=== PATIENT | male | born 1930 | race Caucasian/White ===

== ENCOUNTER 2017-01-15 06:26 | Inpatient (IN) ==
[2017-01-15] MEDS ORDERED: DUONEB (A & A) INH ONE (07:03)
[2017-01-15] MEDS ORDERED: SOLU-MEDROL IV ONE (07:03)
--- NOTE | 2017-01-15 07:13 | PROVIDER DOCUMENTATION ---
HPI-Respiratory General - General Chief Complaint: Shortness of Breath Stated Complaint: bronchitis sx worsening/feet swelling Time Seen by Provider: 01/15/17 06:33 Source: patient, family Allergies/Adverse Reactions: Patient Allergies Allergy/AdvReac Type Severity Reaction Status Date / Time clopidogrel bisulfate * Allergy Severe HIVES Verified 01/15/17 07:22 [From Plavix] meperidine HCl * Allergy Severe NAUSEA/VOMI Verified 01/15/17 07:22 [From Demerol] TING morphine AdvReac Severe NAUSEA/VOMI Verified 01/15/17 07:22 TING Home Medications: Home Medication List Medication Instructions Recorded Confirmed Last Taken Type Isosorbide Mononitrate E.r. [Imdur] 60 mg PO DAILY 12/06/13 01/15/17 01/14/17 History SIMVAstatin [Zocor] 20 mg PO QHS 12/06/13 01/15/17 01/14/17 History Potassium Chloride E.r. [K-Dur] 20 meq PO DIRECTED #0 tablet 01/06/1401/14/17 Rx Furosemide [Lasix] 40 mg PO DIRECTED 09/22/14 01/15/17 01/14/17 History Metoprolol [Lopressor] 0.5 tab PO BID 09/22/14 01/15/17 01/14/17 History Amiodarone HCl 200 mg PO DAILY 02/02/16 01/15/17 01/14/17 History Aspirin [Aspirin EC] 81 mg PO DAILY 02/02/16 01/15/17 01/14/17 History Nitroglycerin [Nitroglycerin 1 spray SL Q5M PRN PRN 02/02/16 01/15/17 Unknown History Lingual [place]] Psyllium Husk [Metamucil] 2 each PO DAILY 02/02/16 01/15/17 01/14/17 History Apixaban [Eliquis] 2.5 mg PO BID 01/15/17 01/15/17 01/14/17 History Digoxin [Digoxin] 125 mcg PO DIRECTED 01/15/17 01/15/17 01/14/17 History Levothyroxine Sodium 50 mcg PO DAILY 01/15/17 01/15/17 01/14/17 History Ranolazine E.r. [Ranexa] 500 mg PO BID 01/15/17 01/15/17 01/14/17 History - History of Present Illness-Resp Nature of Presenting Problem: Reports cough/fever started 2 days ago. Saw PCP and was prescribed Z-pack, Tessalon, and Medrol dose pack. No improvement. Reports SOB and b/l leg swelling this AM and still running a fever. Reports pacer and a stent in the past. Been f/u with Dr. Johnson, Feed [facility] Q 2-3 month for pacer checking etc. Had a normal stress test < 1 year ago. Denies DMII/COPD. Reports chest tightness when seen at ER. Quality of Pain: reports: aching Severity in ED: reports: moderate Onset/Duration: reports: 2 days ago Timing: reports: still present, getting worse Context: denies: recent foreign travel Cough Quality/Degree: reports: productive cough Current Respiratory Medication Therapy: Initiated none, Initiated see nurses note Modifying Factors: improves with: rest Associated Symptoms: reports: cough, fever/chills, flu-like symptoms, nasal congestion, shortness of breath, wheezing Similar Symptoms Previously?: Yes Recently seen or treated by another doctor?: Yes Review of Systems - Adult - REVIEW OF SYSTEMS - ADULT Constitutional: reports: see HPI, chills, fever, fatique Eyes: reports: no symptoms reported Ears, Nose, Mouth & Throat: reports: no symptoms reported Cardiovascular: reports: see HPI, chest pain Respiratory: reports: see HPI, cough, shortness of breath, wheezing Gastrointestinal: reports: no symptoms reported Genitourinary: reports: no symptoms reported Musculoskeletal: reports: no symptoms reported Integumentary: reports: no symptoms reported Neurological: reports: no symptoms reported Psychiatric: reports: no symptoms reported Allergic/Immunologic: reports: no symptoms reported All Other Systems: Reviewed and Negative Past History - Adult - PAST MEDICAL HISTORY-ADULT Review of Records: reports: Nursing Assessment Review, Medications Reviewed, Social history reviewed & non-contributory. Major Childhood Illnesses: reports: denies history Cardiovascular: reports: cardiac disease, HTN, hyperlipidemia Other Conditions: reports: other cancer (right neck lymph nodes) - PRIOR SURGERIES/PROCEDURES Surgical/Procedure History: reports: cholecystectomy, orthopedic (extremity) ( knee replacement), back/neck (back and neck Sx), other (triple bypass;carpel tunnel) - IMMUNIZATION STATUS Childhood Immunizations: See Nurse Assessment Flu Vaccine: UTD - FAMILY HISTORY Family History: reviewed, not pertinent Physical Exam-General - PHYSICAL EXAM-ADULT Initial Vital Signs Reviewed: Yes - CONSTITUTIONAL General Appearance: alert, no apparent distress - EYES Eyes: PERRL/EOMI, pink conjunctivae - HEAD, EARS, NOSE, MOUTH & THROAT HENMT: normocephalic/atraumatic, moist mucous membranes, normal ENT inspection - NECK Neck: non-tender, full range of motion, supple - RESPIRATORY Respiratory: chest non-tender, no pleuratic chest pain, no respiratory distress , no accessory muscle use, rales, rhonchi, wheezing. negative: retractions, splinting - CARDIOVASCULAR Cardiovascular: normal peripheral pulses, regular rate, rhythm - GASTROINTESTINAL (ABDOMEN) Abdominal Exam: normal bowel sounds, non tender, soft - MUSCULOSKELETAL Back Exam: normal inspection, no CVA tenderness, no vertebral tenderness Extremity: normal range of motion, non-tender, normal gait, normal inspection, swelling (B/l LE 1+ pitting edema.). negative: no calf tenderness - SKIN Integumentary: normal color, normal turgor, warm/dry - NEUROLOGIC Neurologic: no motor/sensory deficits - PSYCHIATRIC Psych/Mental Status: normal mood/affect, normal thought content, normal thought process, oriented x 3 Progress - PLAN OF CARE/RESULTS Progress/Plan/Lab Results: Orders Category Date Time Status Admit - [facility] Routine AdmDCTranf 01/15/17 11:47 Ordered Activity - Up with Assistance ORDERED Care 01/15/17 11:47 Active Apply Mechanical Device [QM] ORDERED Care 01/15/17 11:47 Active Cardiac Monitoring DIRECTED Care 01/15/17 07:03 Active Elevate Head of Bed DIRECTED Care 01/15/17 11:47 Active Encourage Fluids DIRECTED Care 01/15/17 11:47 Active Intake and Output-Strict Q 8-HR ASSESS Care 01/15/17 11:47 Active Nursing- Assist w/ IS as order ORDERED Care 01/15/17 11:47 Active Saline Loc NOW Care 01/15/17 07:03 Active Turn, Cough and Deep Breathe Q2HR Care 01/15/17 11:47 Active Vital Signs Order Q 8-HR ASSESS Care 01/15/17 11:47 Active Regular Diet Diet 01/15/17 10:32 Active CHEST-2 VIEWS [RAD] Routine Exams 01/16/17 06:00 Completed CHEST-PORTABLE [RAD] Stat Exams 01/15/17 07:03 Completed ABG [RESP] Routine Lab 01/15/17 07:25 Completed BLOOD CULTURE [BLDCUL] Stat Lab 01/15/17 07:38 Results CBC WITH DIFF [HEME] Routine Lab 01/16/17 05:40 Completed CBC WITH ELECTRONIC DIFF [HEME] Stat Lab 01/15/17 07:38 Completed CK PROFILE [SP CHEM] Stat Lab 01/15/17 07:38 Completed COMPREHENSIVE METABOLIC PANEL [CHEM] Stat Lab 01/15/17 07:38 Completed Flu Swab [INFLUENZA SCREEN A/B] Stat Lab 01/15/17 07:38 Completed MAGNESIUM [CHEM] Stat Lab 01/15/17 07:38 Completed PRO B-NATRIURETIC PEPTIDE Stat Lab 01/15/17 07:38 Completed PROTIME WITH INR [COAG] Stat Lab 01/15/17 07:38 Completed PTT [COAG] Stat Lab 01/15/17 07:38 Completed SPUTUM CULTURE WITH GRAM STAIN [RM] Routine Lab 01/15/17 15:05 Results TROPONIN T Stat Lab 01/15/17 07:38 Completed UA NIMS W/REFLEX CULT [URINALYSIS] Stat Lab 01/15/17 07:38 Completed 0.9% Sodium Chloride Inj [Ns] 1,000 ml Med 01/15/17 11:47 Active IV KVO Albuterol 2.5MG/Ipratrop 0.5MG [Duoneb (A & A)] Med 01/15/17 07:03 Discontinued 3 ml INH NOW ONE Amiodarone [Cordarone] Med 01/16/17 09:00 Active 200 mg PO DAILY Apixaban [Eliquis] Med 01/15/17 21:00 Active 2.5 mg PO BID Aspirin EC Med 01/16/17 09:00 Active 81 mg PO DAILY CefTRIAXONE 1 GM/NS [Rocephin 1 gm/Ns] Med 01/15/17 11:47 Active 1 gm in 50 ml IV Q24H Digoxin [Lanoxin] Med 01/16/17 09:00 Active 125 microgm PO Q48H Fluticasone/Salmet 250/50 INH [Advair 250/50 Diskus] Med 01/15/17 11:47 Active 1 puff INH RTBID Furosemide [Lasix] Med 01/17/17 09:00 Active 40 mg PO MoWeFr Furosemide [Lasix] Med 01/15/17 09:29 Discontinued 60 mg IV NOW ONE Isosorbide Mononitrate E.r. [Imdur] Med 01/16/17 09:00 Active 60 mg PO DAILY Levothyroxine [Synthroid] Med 01/16/17 09:00 Active 50 microgm PO DAILY Methylprednisolone Sod Succ [Solu-Medrol] Med 01/15/17 07:03 Discontinued 125 mg IV NOW ONE Metoprolol [Lopressor] Med 01/15/17 21:00 Active 12.5 mg PO BID Nitroglycerin [Nitroglycerin Lingual [place]] Med 01/15/17 11:47 Active 0 gm SL Q5M PRN PRN Potassium Chloride E.r. [Klor-Con] Med 01/17/17 09:00 Active 20 meq PO MoWeFr Psyllium Husk [Metamucil] Med 01/16/17 09:00 Active 2 each PO DAILY Ranolazine E.r. [Ranexa] Med 01/15/17 21:00 Active 500 mg PO BID SIMVAstatin [Zocor] Med 01/15/17 21:00 Active 20 mg PO QHS Aerosol Treatments RTQ6H.[facility] 01/15/17 16:00 Completed Aerosol Treatments RTQ6H.[facility] 01/15/17 22:00 Completed Aerosol Treatments RTQ6H.[facility] 01/16/17 10:00 Completed Aerosol Treatments Routine Ot 01/15/17 07:05 Completed Aerosol Treatments Stat Ot 01/15/17 07:05 Completed Incentive Spirometer Routine Ot 01/15/17 11:47 Completed MDI Treatments Stat Ot 01/15/17 11:47 Completed Oxygen Device Routine Ot 01/15/17 11:47 Completed Pulse Oximetry Routine Ot 01/15/17 11:47 Completed Telemetry [OM.EQ] Routine Ot 01/15/17 11:47 Active EKG [EKG] Stat Ther 01/15/17 06:37 Draft EKG [EKG] Stat Ther 01/15/17 07:03 Ordered Transfer/Admit Order [TRANSFER] Routine Transfer 01/15/17 10:29 Completed Result Diagrams: 01/16/17 05:40 01/15/17 07:38 - REASSESSMENT Reassessment #1 Time Reassessed: 10:23 Status: improving (after 450 ml of urine out the patient felt much better. Reviewed cxr with radiology and they said CHF was read as pneumonia because it was labeled fever and cough. Dr Painting will assess for disposition) Departure - Departure Time of Disposition Decision: 10:00 DIAGNOSIS: SOB (shortness of breath) CHF (congestive heart failure) Qualifiers: Congestive heart failure type: unspecified congestive heart failure type Congestive heart failure chronicity: acute on chronic Qualified Code(s): I50.9 - Heart failure, unspecified Disposition: ADMITTED INPATIENT 09 Certified Medical Emergency: Emergent Condition: Stable
[2017-01-15 07:33] LABS: ALLEN TEST YES; BE 5.6 mmoll (-3.0-3.0); BLOOD TYPE ARTERIAL; DRAW SITE R RADIAL; METHB 1.4 % (0.0-1.5); O2(CT) 14.4 mL/dL (15.0-23.0); PCO2(98.6) 41 mmHg (35-45); PO2(98.6) 58 mmHg (60-100); SAMPLE BLOOD; SAO2 93.8 % (95.0-100.0); THB 11.3 g/dL (11.5-17.4); pH(98.6) 7.47 (7.35-7.45)
[2017-01-15 08:03] LABS: MANUAL DIFF NEEDED? NO; URINE CULTURE NEEDED? NO; URINE MICRO REVIEW NEEDED? NO; URINE SOURCE CLEAN CATCH
[2017-01-15 08:08] LABS: HEMOGLOBIN 11.8 g/dL (14.0-18.0); LYMPH# 1.27 X1000 (1.2-3.4); LYMPH% 14.4 % (20.5-51.1); MCH 28.1 PG (27-31); MCHC 31.1 g/dL (33-37); MCV 90.5 FL (81-99); MONO# 0.67 X1000 (0.11-0.59); MONO% 7.6 % (1.7-9.3); MPV 10.3 FL (7.4-10.4); PLT 176 X1000 (130-400)
[2017-01-15 08:12] LABS: BILIRUBIN URINE NEGATIVE (NEGATIVE); BLOOD URINE NEGATIVE (NEGATIVE); COLOR STRAW; GLUCOSE URINE NEGATIVE (NEGATIVE); LEUKOCYTES URINE NEGATIVE (NEGATIVE); NITRITE URINE NEGATIVE (NEGATIVE); PROTEIN URINE NEGATIVE (NEGATIVE); SP GRAVITY URINE 1.007; TURBIDITY URINE CLEAR (CLEAR); UROBILINOGEN URINE NORMAL (NORMAL)
[2017-01-15 08:14] LABS: UR EPITHELIAL CELLS <10 /HPF (<10); URINE BACTERIA NEGATIVE /HPF; URINE RBC <10 /HPF (<10); URINE WBC <10 /HPF (<10)
[2017-01-15 08:16] LABS: INR 1.2; PROTIME 12.8 Seconds (9.2-11.7); PTT 31.8 Seconds (22.0-36.0)
[2017-01-15 08:29] LABS: AGAP 14; ALBUMIN 3.8 g/dL (3.5-5.0); ALKALINE PHOSPHATASE 56 U/L (32-122); BUN 27 mg/dL (8-22); CHLORIDE 101 mmol/L (98-107); CK PROFILE 47 U/L (24-204); COSMO 286; GOT 28 U/L (10-34); GPT 19 U/L (10-44); MAGNESIUM 2.2 mg/dL (1.5-2.7); POTASSIUM 4.2 mmol/L (3.5-5.1); SODIUM 141 mmol/L (136-145); TCO2 26 mmol/L (25-35); TOTAL BILIRUBIN 0.82 mg/dL (0.20-1.00); TOTAL PROTEIN 7.5 g/dL (6.3-8.3)
--- NOTE | 2017-01-15 09:01 | Diag Imaging Result Document ---
PROCEDURE NAME: CHEST-PORTABLE - 01/15/2017 PORTABLE CHEST X-RAY: COMPARISON: 12/10/2016. FINDINGS: Stable dual-chamber pacemaker and CABG changes. Stable moderate cardiomegaly. There is significant mixed primarily alveolar infiltrate throughout the right lung diffusely. There is lesser infiltrate in the left lung base. No pneumothorax or large effusion. IMPRESSION: Bilateral pulmonary infiltrates, right greater than left. Pneumonia is suggested, although a component of pulmonary edema cannot be excluded.
[2017-01-15] MEDS ORDERED: LASIX IV ONE (09:29)
[2017-01-15] MEDS ORDERED: NITROGLYCERIN LINGUAL SPRAY SL PRN (11:47)
[2017-01-15] MEDS: ROCEPHIN 1 GM/NS 1 GM/50 ML IVPB IV SCH (13:35)
--- NOTE | 2017-01-15 13:44 | HISTORY AND PHYSICAL ---
HISTORY OF PRESENT ILLNESS: This is an 86-year-old brought to the emergency room this morning. He states that since Tuesday, so going on for about 5 or 6 days, he has had increased cough, increased shortness of breath. He did, I think, see Dr. Gama Gerber who is his physician, but felt like it had worsened, and his states she had had similar symptoms but got better, brought him to the emergency room. PAST MEDICAL HISTORY: 1. Hypertension. 2. Coronary artery disease. 3. Hypercholesterolemia. 4. 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 SURGICAL HISTORY: 1. Status post cholecystectomy. 2. Status post coronary bypass grafting x3. 3. Left knee replacement. 4. Lumbar disk fusions. 5. Lymph node removal on his neck 40 years ago. He denies chest pain or pleuritic pain. He just feels short of breath and increased cough and denies fever or chills. FAMILY HISTORY: Noncontributory. SOCIAL HISTORY: Positive for alcohol, 2 beers a day. Tobacco--chews daily. Denies illicit drugs. Lives at home with his . ALLERGIES: Plavix, Demerol, and morphine which has caused hives and itching before. PRESENT MEDICATIONS: He is on: 1. Amiodarone 200 mg daily. 2. Eliquis 2.5 b.i.d. 3. Aspirin 81 mg a day. 4. Digoxin 125 mcg a day. 5. Lasix 40 mg a day. 6. Imdur 60 mg a day, 7. Levothyroxine 50 mcg a day, 8. Lopressor 0.5 mg b.i.d. 9. Potassium chloride 20 mEq a day, 10.Metamucil two a day. 11.Ranexa 500 mg b.i.d. 12.Zocor 20 mg at bedtime. STUDIES: Echocardiogram I saw on 01/04/2014 shows: 1) Mildly decreased left ventricular systolic function, ejection fraction was 50% to 55%. Questionable hypokinesis of the posterior wall. 2) A moderate degree of tricuspid regurgitation, moderate amount of pulmonary hypertension with right-sided pressures about 63 mmHg, 3) moderate enlargement of the right ventricle, 4) significant enlargement of the right atrium, 5) moderate enlargement of the left atrium, 6) a mild to moderate degree of mitral regurgitation. He has sclerosis of the aortic valve without any stenosis. He had a lower extremity venous study done on 12/21, as well. No evidence of deep or superficial venous thrombus at that time in either leg. PHYSICAL EXAMINATION TODAY: VITAL SIGNS: Afebrile, temp 97.5. Pulse 89, respirations 20, blood pressure 145/74. Height 5 feet 9 inches. HEENT: Pupils are equal and round. NECK: Does have mild distension of neck veins, CVP about 8 cm water pressure. LUNGS: Clear in all lung ashraf. No active wheezing. CARDIOVASCULAR: Regular rhythm and rate without murmur or S3. ABDOMEN: Soft. SKIN: Warm and dry. LABORATORY DATA: White blood cell count 8840, hematocrit 38, platelet count 176,000. Sodium 141, potassium 4.2, chloride 101, bicarb 26, BUN 27, creatinine 1.1, blood sugar was 89, magnesium 1.2. Troponin was less than 0.01. ProBNP 4426. Pro time is 12.8, PTT 31.8. Urinalysis unremarkable. Blood gases show pH was 7.47, pCO2 was 41, pO2 was 58, O2 sat was 93% on room air. IMAGING: Chest x-ray: Bilateral pulmonary infiltrates, right greater than left. Pneumonia suggested, although a component of pulmonary edema could not be excluded. ASSESSMENT AND PLAN: 1. History of coronary artery disease. History of mild left ventricular dysfunction. Does, I think, have a little bit of pulmonary venous hypertension but all in all, well controlled. 2. Obviously, some bronchitis and chest x-ray suggestive of infiltrates, so I am going to treat him for bronchial pneumonia, and we may give him a little bit of Lasix while he is here. He is allergic to Plavix and meperidine and morphine, but I will give him some Rocephin 1 g daily. I will give him a little bit of Lasix today, and will give him some breathing treatments including steroid inhaler and a little supplemental O2 and see if he does not feel a little better. I will also give him some Tessalon Perles for his cough. 3. History of coronary artery disease status post coronary artery bypass graft x3, mild left ventricular dysfunction suggested on echocardiogram back in December of 2013, but his ejection fraction at that time was 50% to 55%. I think he has some mild pulmonary venous hypertension but I do not think this is the main problem. 4. Hypertension. Will watch his blood pressure. Continue his current medications. Blood pressure was a little high when he came in, 174/63. It is now 145/74, which is acceptable. 5. He has had cancer of his right neck, status post surgery. 6. History of hypercholesterolemia. cc: MD Gama Diana MD
[2017-01-15] MEDS: DUONEB (A & A) INH SCH ×2 (15:28→23:00)
[2017-01-15] MEDS: ADVAIR 250/50 DISKUS INH SCH ×2 (15:28→22:59)
[2017-01-15] MEDS: RANEXA PO SCH (22:13)
[2017-01-15] MEDS: ELIQUIS PO SCH (22:13)
[2017-01-15] MEDS: LOPRESSOR PO SCH (22:13)
[2017-01-15] MEDS: ZOCOR PO SCH (22:13)
[2017-01-16] MEDS: NS 1,000 ML IV SCH ×2 (01:00→16:57)
[2017-01-16] MEDS: DUONEB (A & A) INH SCH ×4 (04:13→23:00)
[2017-01-16 06:31] LABS: BASO% 0.2 % (0.0-0.8); HEMATOCRIT 36.5 % (42.0-52.0); HEMOGLOBIN 11.2 g/dL (14.0-18.0); LYMPH# 0.28 X1000 (1.2-3.4); MANUAL DIFF NEEDED? YES; MCH 27.8 PG (27-31); MCHC 30.7 g/dL (33-37); MCV 90.6 FL (81-99); MONO# 0.33 X1000 (0.11-0.59); MONO% 5.9 % (1.7-9.3); MPV 10.3 FL (7.4-10.4); NEUT% 88.9 % (42.2-75.2); PLT 150 X1000 (130-400); RBC 4.03 XMIL (4.7-6.1)
[2017-01-16 09:36] LABS: LYMPHS 3 % (21-51); MONO 3 % (1-9)
[2017-01-16] MEDS: ADVAIR 250/50 DISKUS INH SCH ×2 (09:38→23:00)
[2017-01-16] MEDS: ELIQUIS PO SCH ×2 (11:00→20:20)
[2017-01-16] MEDS: METAMUCIL PO SCH ×2 (11:00)
[2017-01-16] MEDS: LANOXIN PO SCH (11:01)
[2017-01-16] MEDS: RANEXA PO SCH ×2 (11:01→20:20)
[2017-01-16] MEDS: SYNTHROID PO SCH (11:02)
[2017-01-16] MEDS: IMDUR PO SCH (11:02)
[2017-01-16] MEDS: LOPRESSOR PO SCH ×2 (11:02→20:20)
[2017-01-16] MEDS: ASPIRIN EC PO SCH (11:03)
[2017-01-16] MEDS: CORDARONE PO SCH (11:03)
--- NOTE | 2017-01-16 12:59 | Diag Imaging Result Document ---
PROCEDURE NAME: CHEST-2 VIEWS - 01/16/2017 CHEST X-RAY 2 VIEWS, 01/16/2017: COMPARISON: 01/15/2017. FINDINGS: There is slight improvement in the bilateral ill-defined infiltrates, asymmetric on the right side. Stable cardiomegaly. No pneumothorax or pleural effusion. IMPRESSION: Slight improvement from prior.
[2017-01-16] MEDS: ROCEPHIN 1 GM/NS 1 GM/50 ML IVPB IV SCH (13:07)
[2017-01-16] MEDS ORDERED: LASIX IV ONE ×2 (16:18→23:58)
--- NOTE | 2017-01-16 17:42 | PROGRESS NOTE ---
DATE: 01/16/2017 SUBJECTIVE: Mr. Kaye is feeling better. The breathing is better. He is a little stronger. PHYSICAL EXAMINATION: Vital Signs: Today temperature 97.5 degrees, pulse 60, respirations 14, blood pressure 122/53. HEENT: Pupils equal and round. CVP less than 6 cm. Lungs: Clear in all lung ashraf. Cardiovascular: Regular rhythm and rate without murmur or S3. Abdomen: Soft. Skin: Warm and dry. URINE OUTPUT: Was like 1500 mL. LABORATORIES: From this morning white count 5580, hematocrit 36, platelet count 150,000. Stable. Electrolytes from yesterday looked good. Creatinine 1.1. Chest x-ray from this morning slight improvement from prior on 01/15/2017. There is slight improvement bilaterally with ill-defined infiltrates, asymmetric on the right side. Clinically he feels much better. ASSESSMENT AND PLAN: 1. History of coronary artery disease. History of mild left ventricular dysfunction. Does have some pulmonary venous hypertension. Appears to be doing better from post diuresis, swelling is down in his ankles as well. Breathing better. 2. Obviously he has some bronchitis but chest x-ray also suggestive of some infiltrates so continue to treat for pneumonia. He is on Rocephin 1 g daily. I probably will give him some more Lasix today as well. 3. History of coronary artery disease. He is status post 3 grafts. Mild left ventricular function suggestive by echocardiogram back in December,. Ejection fraction 50-55%. He has some mild pulmonary arterial hypertension. 4. Hypertension. 5. History of cancer in his neck, status post surgery. 6. History of hypercholesterolemia. He does appear improved. Breathing doing better. Still coughing. I will give him another dose of Lasix. Continue his Rocephin. I do not see any other changes at this point. cc: MD Gama Diana MD
[2017-01-16] MEDS: ZOCOR PO SCH (20:20)
[2017-01-17] MEDS ORDERED: SOLU-MEDROL IV ONE (00:12)
[2017-01-17] MEDS: DUONEB (A & A) INH SCH (03:03)
[2017-01-17 05:05] LABS: ALLEN TEST YES; BLOOD TYPE ARTERIAL; DRAW SITE R RADIAL; METHB 1.4 % (0.0-1.5); O2(CT) 14.4 mL/dL (15.0-23.0); PCO2(98.6) 45 mmHg (35-45); PO2(98.6) 71 mmHg (60-100); SAMPLE BLOOD; SAO2 96.7 % (95.0-100.0); THB 10.9 g/dL (11.5-17.4); pH(98.6) 7.48 (7.35-7.45)
[2017-01-17 06:32] LABS: MODALITY CANNULA
--- NOTE | 2017-01-17 06:57 | EKG Report ---
Test Performed on : 01/17/2017 06:35:59 AM Test Reason : SOB Blood Pressure : / mmHG Vent. Rate : 065 BPM Atrial Rate : 065 BPM P-R Int : 186 ms QRS Dur : 168 ms QT Int : 504 ms P-R-T Axes : 073 -89 105 degrees QTc Int : 524 ms AV dual-paced rhythm Abnormal ECG When compared with ECG of 15-JAN-2017 06:36, (Unconfirmed) No significant change was found Confirmed by Zabrina OLIVA, Gama Garcia ([id number]) on 01/17/2017 8:01:28 PM
--- NOTE | 2017-01-17 07:09 | EKG Report ---
Test Performed on : 01/15/2017 06:36:56 AM Test Reason : cp Blood Pressure : / mmHG Vent. Rate : 064 BPM Atrial Rate : 064 BPM P-R Int : 000 ms QRS Dur : 204 ms QT Int : 500 ms P-R-T Axes : 000 -88 090 degrees QTc Int : 515 ms AV dual-paced rhythm Abnormal ECG When compared with ECG of 02-FEB-2016 12:23, No significant change was found Unconfirmed Result
--- NOTE | 2017-01-17 07:36 | Diag Imaging Result Document ---
PROCEDURE NAME: CHEST-PORTABLE - 01/17/2017 AP PORTABLE CHEST AT 0500 HOURS: FINDINGS: There is alveolar opacity in the perihilar regions and throughout the right lung. This may be due to pulmonary edema, although the possibility of pneumonia cannot be excluded. Considering differences in technique, this has not changed since 01/17/2017 at 0110 hours. There has been worsening in the right upper lobe since the previous study of 01/16/2017, however. IMPRESSION: Pulmonary edema and/or pneumonia.
--- NOTE | 2017-01-17 08:14 | Diag Imaging Result Document ---
PROCEDURE NAME: CHEST-PORTABLE - 01/17/2017 AP PORTABLE CHEST AT 0110 HOURS: FINDINGS: There is cardiomegaly. There are sternotomy wires and anterior mediastinal surgical clips. There is a pacemaker on the left. There is alveolar opacity in the left perihilar region and throughout the right lung, particularly in the perihilar region and base. This has worsened, particularly with respect to the right upper lobe since 01/16/2017. There has been no appreciable change since 01/15/2017. IMPRESSION: Pulmonary edema and/or pneumonia.
[2017-01-17] MEDS ORDERED: ALBUTEROL NEB INH PRN (08:35)
[2017-01-17] MEDS ORDERED: LASIX PO SCH (09:00)
[2017-01-17] MEDS: ALBUTEROL NEB INH PRN ×3 (09:22→19:45)
[2017-01-17] MEDS: ADVAIR 250/50 DISKUS INH SCH ×2 (09:22→19:45)
[2017-01-17] MEDS: ELIQUIS PO SCH ×2 (09:38→21:36)
[2017-01-17] MEDS: IMDUR PO SCH (09:38)
[2017-01-17] MEDS: KLOR-CON PO SCH (09:38)
[2017-01-17] MEDS: RANEXA PO SCH ×2 (09:38→21:36)
[2017-01-17] MEDS: LOPRESSOR PO SCH ×2 (09:38→21:37)
[2017-01-17] MEDS: LASIX IV SCH (09:38)
[2017-01-17] MEDS: ASPIRIN EC PO SCH (09:38)
[2017-01-17] MEDS: CORDARONE PO SCH (09:39)
[2017-01-17] MEDS: DOXYCYCLINE PO SCH ×2 (09:39→21:37)
[2017-01-17] MEDS: SYNTHROID PO SCH (09:39)
[2017-01-17] MEDS: METAMUCIL PO SCH ×2 (09:39)
[2017-01-17] MEDS: SOLU-MEDROL IV SCH ×2 (12:45→23:42)
[2017-01-17] MEDS: ROCEPHIN 1 GM/NS 1 GM/50 ML IVPB IV SCH (12:45)
--- NOTE | 2017-01-17 21:25 | ECHO REPORT ---
ORDER DATE: 01/17/2017 MEASUREMENTS: Left ventricular end-diastolic diameter 5.2, end-systolic diameter 4.2, posterior wall thickness 1.0, septal thickness 1.5, left atrium 5.6, aortic root 3.3. SUMMARY: 1. Fair quality study. 2. Mild aortic valve sclerosis involving trileaflet aortic valve with adequate aortic valve opening evident. Peak instantaneous gross aortic valve is 16 mmHg. Mitral and tricuspid valves are without structural abnormality. Pulmonic valve without structural abnormality. There is mild to moderate mitral regurgitation and moderate to severe tricuspid regurgitation. Estimated systolic PA pressure by Doppler is 100 mmHg suggesting severe pulmonary hypertension. Aortic root is normal size. 3. Normal left ventricular dimensions suggested on 2-dimensional images. Estimated left ejection fraction approximately 50%. The left atrium is moderately enlarged. The right atrium is moderately enlarged. The right ventricle is mildly enlarged with grossly preserved right ventricular systolic performance. Pacemaker lead is evident in the right atrium and right ventricle. 4. No pericardial effusion. 5. Appearance of inferior vena cava suggests elevated central venous pressure. CONCLUSIONS: 1. Mild aortic valve sclerosis without stenosis. 2. Mild to moderate mitral regurgitation. 3. Moderate to severe tricuspid regurgitation with severe pulmonary hypertension by Doppler. 4. Estimated left ejection fraction 50%. 5. Moderate biatrial enlargement. 6. Mild right ventricular enlargement. 7. Elevated central venous pressure is suggested. cc: MD Gama Longo MD
[2017-01-17] MEDS: ZOCOR PO SCH (21:37)
[2017-01-18] MEDS: ALBUTEROL NEB INH PRN ×5 (02:41→19:19)
[2017-01-18] MEDS: ADVAIR 250/50 DISKUS INH SCH (07:32)
[2017-01-18] MEDS: IMDUR PO SCH (09:15)
[2017-01-18] MEDS: ELIQUIS PO SCH ×2 (09:15→21:28)
[2017-01-18] MEDS: SYNTHROID PO SCH (09:16)
[2017-01-18] MEDS: ASPIRIN EC PO SCH (09:16)
[2017-01-18] MEDS: LOPRESSOR PO SCH ×2 (09:17→21:26)
[2017-01-18] MEDS: DOXYCYCLINE PO SCH ×2 (09:18→21:28)
[2017-01-18] MEDS: CORDARONE PO SCH (09:18)
[2017-01-18] MEDS: RANEXA PO SCH ×2 (09:19→21:27)
[2017-01-18] MEDS: METAMUCIL PO SCH ×2 (09:19)
[2017-01-18] MEDS: LANOXIN PO SCH (09:19)
[2017-01-18] MEDS: LASIX IV SCH (09:19)
[2017-01-18] MEDS: SOLU-MEDROL IV SCH ×2 (12:02→23:58)
--- NOTE | 2017-01-18 20:51 | CONSULTATION ---
DATE OF CONSULTATION: 01/18/2017 CONSULTATION REQUESTED BY: Dr. Gerber. REASON FOR CONSULTATION: Shortness of breath, pulmonary hypertension. HISTORY OF PRESENT ILLNESS: Mr. Kaye is an 86-year-old male, patient of Dr. Elisha Johnson, from the [facility]. He presented to the emergency room on January 15 with a 3 to 5 day history of increasing cough, shortness of breath, wheezing, and edema of the lower extremities. The patient apparently started having these symptoms around Tuesday, a week ago , that would have been January 11, and then it continued to progress in spite of outpatient antibiotic treatment. At the time of initial presentation to the emergency room, they did a chest x-ray on him that showed bilateral pulmonary infiltrates, right greater than left, pneumonia suggested, although a component of pulmonary edema cannot be excluded. They did an electrocardiogram that showed activity of a dual chamber pacemaker. The rate was 64. They did a number of blood tests including blood gases. His pO2 was 58, his pCO2 was 41, pH 7.47. BUN 27, creatinine 1.1. His initial pro BNP level was 4426. Troponin was negative. CPK was normal. Urinalysis was negative. His white count was 8840. He was initially given treatment with IV Rocephin, methylprednisolone, and Lasix. He has also been placed on doxycycline. Since admission, the patient has noted some improvement. He is not wheezing. His legs are not as swollen. He feels better and his , who is at the bedside, states that he appears to be better. He is not having any chest pain, nausea, vomiting, fever, syncope or chills. PAST MEDICAL HISTORY: Positive for severe coronary heart disease. He has a history of paroxysmal atrial fibrillation. He has had carotid artery stenosis. He has congestive heart failure. He has mitral regurgitation, hypertension, hyperlipidemia, degenerative joint disease. PAST SURGICAL HISTORY: He had open heart x3 in 1996, mammary artery to LAD, vein graft to marginal, vein graft to PDA. Subsequently 2 of those vein grafts have become occluded. He only has a patent mammary artery to LAD as noted on a cardiac cath done about a year ago, 2015. He has had a pacemaker implanted in the past. He was noted to be in atrial fibrillation. He has had cardioversion about 2 months ago. He had cholecystectomy and back surgery. He has had extensive surgery done to the right side of his neck to remove malignant lymph nodes and subsequently this was followed by a number of reconstructive surgeries. He has as a consequence of that drooping of the right eye lid, right side of his face. He has a notable deformity of the right side of his face because of the sequela of previous extensive surgery. He has had previous knee surgery, skin cancer. SOCIAL HISTORY: He has been for a long time. He has children. Retired. Lives at home. Not a smoker. FAMILY HISTORY: Brother had coronary heart disease. HOME MEDICATIONS: His home medications at the time of the present admission included: 1. Zocor 20 daily. 2. Ranexa 500 twice a day. 3. Potassium chloride 20 mEq as directed. 4. Metoprolol 0.5 twice a day. 5. Levothyroxine 50 mcg daily. 6. Isosorbide mononitrate 60 mg daily. 7. Furosemide 40 mg as directed. 8. Digoxin 125 mcg as directed. 9. Aspirin 81 mg daily. 10.Apixaban 2.5 twice a day. 11.Amiodarone 200 mg daily. REVIEW OF SYSTEMS: His review of systems is really noncontributory beyond what I have said. His functional capacity is markedly impaired. He does very little physically. ALLERGIES: Plavix, meperidine, and morphine. PHYSICAL EXAMINATION: Vital signs: Blood pressure 152/62, pulse 65, temperature 98.2, respirations 20, weight 187 pounds. General: He is elderly, awake, alert. HEENT: He is normocephalic, however, he has extensive deformity on the right side of his face with drooping on the eye and the right side of the mouth. 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 Probably that is the sequela of extensive surgery performed to the right side of his face. 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 No cervical bruits appear to be present. Chest : Shows diminished breath sounds bilaterally with scattered bilateral crepitus and rhonchi. Cardiac: Heart sounds are regular and rhythmic. There is a questionable systolic murmur , distant. No gallop is noted. Abdomen: Nontender, soft. No masses. No hepatomegaly. Extremities: Showed diminished pulses distally with trace edema. Neurologic: He moves four extremities, follows commands. LABORATORY DATA: BUN 27, creatinine 1.1, sodium 141, potassium 4.2. White count today 5580, hemoglobin 11.2, hematocrit 36.5, platelet count 150,000. Follow-up chest x-ray was done on January 17. That x-ray shows pulmonary edema or pneumonia. The echo Doppler done on January 17 showed mild aortic valve sclerosis without stenosis, moderate-to- severe tricuspid regurgitation with severe pulmonary hypertension,PA systolic pressure of 100 mmHg. LV Ejection fraction 50%. IMPRESSION: 1. Patient presenting with increasing dyspnea, probably the result of a combination of upper respiratory infection plus decompensation of chronic congestive heart failure , both systolic and diastolic. 2. Severe coronary heart disease, previous bypass, patent mammary artery to LAD. 3. History of previous extensive surgery for management of lymphoma or related condition to the right side of the neck with sequela. 4. History of sick sinus syndrome status post pacemaker implantation. 5. Paroxysmal atrial fibrillation. RECOMMENDATIONS: At this point in time, I would suggest gentle diuresis. We might want to rearrange his medications. Probably a combination of isosorbide dinitrate plus hydralazine may be more effective than Imdur in his particular case. Also, we could try some low- dose amlodipine and see if that makes any difference. As far as beta-blockers in his case, given the fact that he is pacemaker dependent, we might want to minimize the use of beta-aileen for the time being until he is out of congestive heart failure. We will be happy to follow him during this admission and upon discharge. The family requests an appointment with Dr. Elisha Johnson, who is his usual freight router. cc: MD Gama Cruz MD [facility]ITAL[facility]ing
[2017-01-18] MEDS: APRESOLINE PO SCH (21:26)
[2017-01-18] MEDS: ZOCOR PO SCH (21:26)
[2017-01-18] MEDS: AMBIEN PO PRN (21:27)
[2017-01-18] MEDS: ISORDIL PO SCH (21:28)
[2017-01-19] MEDS: SYNTHROID PO SCH (08:50)
[2017-01-19] MEDS: LASIX IV SCH (08:50)
[2017-01-19] MEDS: ELIQUIS PO SCH ×2 (08:51→21:32)
[2017-01-19] MEDS: CORDARONE PO SCH (08:51)
[2017-01-19] MEDS: APRESOLINE PO SCH ×3 (08:51→21:32)
[2017-01-19] MEDS: RANEXA PO SCH ×2 (08:51→21:32)
[2017-01-19] MEDS: ASPIRIN EC PO SCH (08:51)
[2017-01-19] MEDS: DOXYCYCLINE PO SCH ×2 (08:51→21:33)
[2017-01-19] MEDS: METAMUCIL PO SCH ×2 (08:51)
[2017-01-19] MEDS: ISORDIL PO SCH ×3 (08:52→21:33)
[2017-01-19] MEDS: KLOR-CON PO SCH (08:52)
[2017-01-19] MEDS: ALBUTEROL NEB INH PRN ×3 (12:01→19:44)
[2017-01-19 12:55] LABS: AGAP 11; BUN 36 mg/dL (8-22); CALCIUM 8.7 mg/dL (8.8-10.2); CHLORIDE 92 mmol/L (98-107); COSMO 286; POTASSIUM 3.8 mmol/L (3.5-5.1); SODIUM 137 mmol/L (136-145); TCO2 34 mmol/L (25-35)
[2017-01-19] MEDS: ZOCOR PO SCH (21:32)
[2017-01-19] MEDS: AMBIEN PO PRN (21:32)
[2017-01-20 06:13] LABS: AGAP 12; BUN 36 mg/dL (8-22); CALCIUM 8.5 mg/dL (8.8-10.2); CHLORIDE 97 mmol/L (98-107); COSMO 294; POTASSIUM 3.9 mmol/L (3.5-5.1); SODIUM 143 mmol/L (136-145); TCO2 34 mmol/L (25-35)
--- NOTE | 2017-01-20 08:36 | PROGRESS NOTE ---
DATE: 01/20/2017 CHIEF COMPLAINT: Shortness of breath. SUBJECTIVE: Mr. Kaye is feeling slightly better, no chest pain, no swelling. OBJECTIVE: Vital signs: Blood pressure 134/61, temperature 98.5, pulse 66, respirations 16. General: He is awake and alert. HEENT/Neck: Jugular veins are slightly prominent. Chest: some end-expiratory wheezing bilaterally. Diminished breath sounds. Cardiac: Heart sounds are regular and rhythmic. No gallop or murmur. Abdomen: Nontender, no masses, no hepatomegaly. Extremities: No edema. Neurological: Moves four extremities. BLOOD WORK: Sodium is 143, potassium 3.9, BUN 36, creatinine 1.0. ProBNP has dropped to 2979. C-reactive protein was elevated at 45.38. IMPRESSION: 1. Patient presenting with decompensation of chronic congestive heart failure which is systolic and diastolic. 2. Patient has severe underlying coronary heart disease, previous bypass surgery. 3. Patient who has probably an acute respiratory process. C-reactive protein is elevated supporting that possibility. 4. History of paroxysmal atrial fibrillation and sick sinus syndrome. RECOMMENDATION: At this point in time, because of his severe pulmonary hypertension, I would try to continue to uptitrate his vasodilators. I am going to go up on the isosorbide dinitrate to 40 mg three times a day, see how he does over the next 24-48 hours. Subsequently, we could go up on the hydralazine to 50 three times a day, always giving them together for a good vasodilatory effect. I would add spironolactone at low doses, 12.5 mg daily, and see how he does. I will be happy to follow him in the hospital. Upon discharge, the patient is already established with Dr. Johnson, so, he will follow with him. cc: MD Gama Cruz MD MTDD
[2017-01-20] MEDS ORDERED: ISORDIL PO SCH (09:00)
[2017-01-20] MEDS: APRESOLINE PO SCH ×3 (09:36→21:36)
[2017-01-20] MEDS: ISORDIL PO SCH ×3 (09:36→21:35)
[2017-01-20] MEDS: ELIQUIS PO SCH ×2 (09:37→21:36)
[2017-01-20] MEDS: CORDARONE PO SCH (09:37)
[2017-01-20] MEDS: ASPIRIN EC PO SCH (09:38)
[2017-01-20] MEDS: LASIX PO SCH (09:39)
[2017-01-20] MEDS: RANEXA PO SCH ×2 (09:39→21:36)
[2017-01-20] MEDS: METAMUCIL PO SCH ×2 (09:39)
[2017-01-20] MEDS: LANOXIN PO SCH (09:40)
[2017-01-20] MEDS: SYNTHROID PO SCH (09:42)
[2017-01-20] MEDS: ALDACTONE PO SCH (09:48)
[2017-01-20] MEDS: PREDNISONE PO SCH (11:25)
[2017-01-20] MEDS: ZOCOR PO SCH (21:35)
[2017-01-20] MEDS: VENTOLIN HFA INH SCH (23:11)
[2017-01-21] MEDS: VENTOLIN HFA INH SCH ×2 (03:20→08:00)
--- NOTE | 2017-01-21 08:01 | Diag Imaging Result Document ---
PROCEDURE NAME: CHEST-2 VIEWS - 01/21/2017 AP AND LATERAL CHEST: FINDINGS: There is a pacemaker on the left. There are sternotomy wires and anterior mediastinal surgical clips. There are coarse interstitial opacities bilaterally. This has improved since 01/17/2017, however some of the improvement is probably due to better inspiration. IMPRESSION: Improved pulmonary edema.
[2017-01-21] MEDS: METAMUCIL PO SCH ×2 (08:26)
[2017-01-21] MEDS: RANEXA PO SCH (08:26)
[2017-01-21] MEDS: PREDNISONE PO SCH (08:26)
[2017-01-21] MEDS: LASIX PO SCH (08:27)
[2017-01-21] MEDS: ASPIRIN EC PO SCH (08:27)
[2017-01-21] MEDS: ISORDIL PO SCH (08:28)
[2017-01-21] MEDS: CORDARONE PO SCH (08:28)
[2017-01-21] MEDS: APRESOLINE PO SCH (08:28)
[2017-01-21] MEDS: ELIQUIS PO SCH (08:29)
[2017-01-21] MEDS: ALDACTONE PO SCH (08:29)
[2017-01-21] MEDS: KLOR-CON PO SCH (08:31)
[2017-01-21] MEDS: SYNTHROID PO SCH (08:33)
[2017-01-21 08:37] VITALS: BP 140/52
--- NOTE | 2017-01-21 09:05 | DISCHARGE SUMMARY ---
ADMISSION DATE: 01/15/2017 DISCHARGE DATE: 01/21/2017 FINAL DIAGNOSES: 1. Acute pulmonary edema secondary to chronic systolic and diastolic congestive heart failure. 2. Severe pulmonary hypertension. 3. Viral URI with acute bronchospasm. 4. Essential hypertension. 5. History of coronary artery disease. 6. Hypothyroidism, replaced. HISTORY OF PRESENT ILLNESS: The patient is an 86-year-old gentleman who presented to the emergency room on the morning of admission with a 5-6 day history of progressive cough and shortness of breath. His had come down with a viral URI several days before he became sick. He denied fever, chills or sputum production. PHYSICAL EXAMINATION: Fairly unremarkable vital signs with moderate distention of his neck veins but relatively clear lung ashraf. No active wheezing. Chest x-ray showed bilateral pulmonary infiltrates severe on the right than the left side. Radiologist felt pneumonia or pulmonary edema were both possibilities. ProBNP was 4426. ABG: PH 7.47, pCO2 41, and PO2 58 on room air. HOSPITAL COURSE: He was admitted to the medical floor and treated with intravenous Lasix and intravenous antibiotics to cover both possibilities. He initially seemed to improve somewhat but during the night on 01/16/2017 he became suddenly more short of breath. Repeat chest x-ray showed worsening of the pulmonary edema and at this time he did respond to intravenous Lasix. An echocardiogram performed the following day, showed left ventricular ejection fraction 50% and also revealed fairly significant pulmonary hypertension with estimated PA systolic of 100 mmHg. He was also noted to have increased wheezing and his steroids were bumped up, treatments instituted. He had slow but gradual improvement in his wheezing and yesterday was changed to oral prednisone and metered-dose inhaler. He has maintained his improvement and is eager to return home. His primary disaster recovery manager is Dr. Johnson in [place]. Dr. Landry saw him here and helped me to manage his pulmonary hypertension and congestive heart failure. He changed his Imdur to a combination of hydralazine and isosorbide dinitrate. He recommended tapering and discontinuing the beta aileen and beginning some low-dose spironolactone. He already has an appointment to see his disaster recovery manager next Tuesday and I will copy some chart records for his to take with him to the appointment to facilitate communication. At the time of discharge, he has minimal if any shortness of breath. He is walking fairly briskly in the halls without difficulty. He still has periods of intermittent hypoxemia and due to his pulmonary hypertension I feel some home oxygen at least at night is clearly indicated and have a social media intern arrange this. Hopefully in the future, we can get a nocturnal oxygen saturation study at home while on room air and see if he needs to continue this. He is to return to my office in 2-3 weeks for followup. DISCHARGE MEDICATIONS: Albuterol meter dose inhaler 2 puffs q.i.d. p.r.n. for shortness of breath. Lasix 40 mg daily. Hydralazine 25 mg 3 times a day. Isosorbide dinitrate 40 mg 3 times a day. Spironolactone 12.5 mg daily. Prednisone 40 mg every morning for 7 days and then discontinue. Nitrolingual spray sublingual as needed. Aspirin 81 mg daily. Metamucil 2 tablets daily. Amiodarone 200 mg daily. Levothyroxine 50 mcg daily. Eliquis 2.5 mg twice a day. Digoxin 125 mcg daily. Ranexa 500 mg daily. cc: MD Elisha Adkins Chi, MD
== END 2017-01-21 13:21 | disposition home health service (06) ==
LOC: ED 06:26 → 4N 11:16
PROVIDERS: ADMIT Internal Medicine; ATTEND Internal Medicine